=== PATIENT | male | born 1965 | race Caucasian/White ===

== ENCOUNTER 2020-02-15 22:47 | Emergency (ER) | payer OTHER ==
[~2020-02-15] VITALS: Ht 180.3 cm; Wt 61.4 kg
[~2020-02-15 22:47] MED LIST: ACCUPRIL 1010 MG/TAB PO; ALPHAGAN OP; HCTZ12.5TAB
[2020-02-15 22:55] VITALS: TEMP 98
[2020-02-15 23:42] LABS: BASO # 0.1 (0.0-0.2); BASO % 0.7 % (0.0-2.0); EOS # 0.4 (0.0-0.7); EOS % 4.2 % (0-4.0); GRAN # 5.7 (1.4-6.5); GRAN % 66.9 % (42.2-75.2); HEMATOCRIT 37.8 % (42.0-52.0); HEMOGLOBIN 13.4 g/dl (13.5-18.0); LYMPH # 1.8 (1.2-3.4); LYMPH % 20.9 % (20.0-51.0); MEAN CELL VOLUME 85 fl (80.0-100.0); MEAN CORPUSCULAR HEMOGLOBIN 30 pg (27.0-31.0); MEAN CORPUSCULAR HGB CONC 35 g/dl (33.0-37.0); MEAN PLATELET VOLUME 11.2 fl (7.4-10.4); MONO # 0.6 (0.1-0.6); MONO % 7.2 % (1.7-9.3); PLATELET COUNT 258 K/mm3 (130-400); RED BLOOD COUNT 4.46 M/mm3 (4.20-5.60); REDCELL DISTRIBUTION WIDTH-CV 11.5 % (11.5-14.5)
[2020-02-15 23:53] LABS: ALANINE AMINOTRANSFERASE 30 U/L (4-49); ALBUMIN 4.4 gm/dL (3.5-5.0); ALKALINE PHOSPHATASE 97 U/L (50-136); ANION GAP 9 mmol/L (7-16); AST,SGOT 29 U/L (15-37); BILIRUBIN,TOTAL 1.4 mg/dL (0.0-1.0); BLOOD UREA NITROGEN 21 mg/dL (9-20); CALCIUM 9.1 mg/dL (8.4-10.2); CARBON DIOXIDE 29 mmol/L (22-30); CHLORIDE 97 mmol/L (98-107); GLUCOSE 143 mg/dL (74-106); POTASSIUM 3.5 mmol/L (3.4-5.0); SODIUM 136 mmol/L (137-145); TOTAL PROTEIN 7.6 gm/dL (6.4-8.2)
[2020-02-16] MEDS ORDERED: NORVASC 5MG5 MG/TAB PO (00:06)
[2020-02-16] MEDS ORDERED: COZAAR 25MG25 MG/TAB PO (00:07)
[2020-02-16 00:47] LABS: C-REACTIVE PROTEIN < 0.5 mg/dL (0.0-0.9)
[2020-02-16 00:55] LABS: ERYTHROCYTE SEDIMENTATION RATE 4 mm/hr (0-30)
[2020-02-16] MEDS ORDERED: DOXYCYCLINE 10100 MG PO (01:44)
[2020-02-16] MEDS ORDERED: NORCO 325 MG-51 TAB PO ×2 (01:44)
[2020-02-16 02:17] VITALS: BP 166/110; PULSE 78
[2020-02-17] MEDS ORDERED: DIOVAN/HCT 12.51 TAB PO (02:53)
[2020-02-17] MEDS ORDERED: LIPITOR 10MG10 MG PO (09:26)
[2020-02-18] MEDS ORDERED: DIOVAN 160MG160 MG PO (08:52)
[2020-02-18] MEDS ORDERED: CIPRO 500MG TA500 MG PO (08:53)
[2020-02-18] MEDS ORDERED: DOXYCYCLINE 10100 MG PO (09:23)
[2020-02-18] MEDS ORDERED: ULTRAM 50MG TAB50 MG PO (09:32)
== END 2020-02-16 02:17 | disposition home or self-care (01) ==
LOC: COL.ER 22:47
PROVIDERS: Physician Assistant
DX: S93.402A Sprain of unspecified ligament of left ankle, initial encounter (principal); I10 Essential (primary) hypertension; X50.1XXA Overexertion from prolonged static or awkward postures, initial encounter; Y92.219 Unspecified school as the place of occurrence of the external cause
CPT/HCPCS: J7030